=== PATIENT | male | born 1975 | race Caucasian/White ===

== ENCOUNTER 2023-07-22 07:29 | Outpatient (CLI) | payer BC, OTHER, SELFPAY ==
--- NOTE | ~2023-07-22 | MR_ITS ---
MRI of the lumbar spine Clinical History: Back pain Technique: Axial T2-weighted images, and sagittal T1-weighted, T2-weighted, and T2 fat-sat images wer e acquired. Findings: There is no fracture or dislocation of the lumbar spine. Vertebral bodies maintain normal h eight and alignment. No bone marrow signal abnormality seen. At L1-L2, there is no disc bulge or herniation. There is minimal facet arthropathy. No central canal stenosis or neural foraminal narrowing. At L2-L3, there is minimal disc bulge and mild facet arthropathy. No central canal stenosis. There is minimal left neural foraminal narrowing. Right neural foramen preserved. At L3-L4, there is moderate degenerative disc narrowing with disc bulge and small central disc protru ignacia. There is moderate facet arthropathy. No marco central canal stenosis. There is moderate bilater al neural foraminal narrowing. At L4-L5, there is moderate degenerative disc narrowing with small central disc extrusion and mild fa cet arthropathy. No central canal stenosis. There is moderate bilateral neural foraminal narrowing. At L5-S1, there is no disc bulge or herniation. There is moderate facet arthropathy. No central canal stenosis. There is preservation of bilateral neural foramina. Paravertebral soft tissues are unremarkable. Impression: Small central disc extrusion at L4-L5. Mild degenerative spondylosis otherwise, as detailed above. Reviewed, dictated and finalized at [facility]. Impression: Small central disc extrusion at L4-L5. Mild degenerative spondylosis otherwise, as detailed above.
== END 2023-07-22 07:30 | disposition home or self-care (01) ==
PROVIDERS: PCP Nurse Practitioner Family; Visit Provider Nurse Practitioner Family
DX: M51.26 Other intervertebral disc displacement, lumbar region (principal); M43.06 Spondylolysis, lumbar region
CPT/HCPCS: 72148

== ENCOUNTER 2023-11-07 09:53 | Emergency (ER) | payer OTHER, SELFPAY ==
--- NOTE | 2023-11-07 09:56 | ED.URI ---
HPI - URI/Sore Throat General Chief Complaint: Upper Respiratory Infection Stated Complaint: bodyaches,headaches,fever Time Seen by Provider: 11/07/23 09:56 Source: patient Mode of arrival: ambulatory Limitations: no limitations History of Present Illness HPI Narrative: Jayjay is a 48-year-old male patient presenting to the clinic today with complaints of sore throat, nasal congestion, headaches, body aches, and feeling feverish for the past 2 days. He reports that he does feel very lethargic. No known sick contacts. Does not know how high his temperature has gotten. He denies any cough, chest pain, or shortness of breath. MD elicited complaint: sore throat and nasal congestion Related Data Home Medications Medication Instructions Recorded Confirmed azelastine 205.5 mcg (0.15 %) 2 spray intranasal DAILY 01/18/22 11/07/23 nasal spray ropinirole 1 mg tablet 2 mg PO HS 01/18/22 11/07/23 atorvastatin 20 mg tablet 20 mg PO DAILY 11/07/23 11/07/23 Allergies Allergy/AdvReac Type Severity Reaction Status Date / Time hydrocodone AdvReac Intermediate Nausea and Verified 11/07/23 09:57 Vomiting Review of Systems Review of Systems: Pertinent positives per HPI. Patient denies any rash, visual changes, dizziness, cough, shortness of breath, chest pain, palpitations, nausea, vomiting, diarrhea, constipation, abdominal pain, or any urinary issues. PENDING SALE TO [facility] Past Medical History Medical History Arthropathy of lumbar facet joint B12 deficiency Chronic pain syndrome Cluster headaches Degeneration of intervertebral disc of lumbar region DNS (deviated nasal septum) Fatigue GERD (gastroesophageal reflux disease) Hyperlipidemia Hypertrophy of inferior nasal turbinate Iron metabolism disorder Lumbar radiculopathy Major depressive disorder 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 Obesity ANÍBAL (obstructive sleep apnea) Peritonsillar cellulitis PLMD (periodic limb movement disorder) PNAR (perennial non-allergic rhinitis) Urinary incontinence Vitamin D deficiency Social History Social History Smoking status: Current every day smoker Tobacco type: cigarettes Alcohol intake: never Substance use: never Substance use type: does not use Living arrangements: with family Comments At the time of my signature, I reviewed and agree with the nursing past medical, surgical, social, and family history. There is no relevant family history pertinent to the patient complaint. Exam Narrative: General: Well-developed, well nourished, in no apparent distress Head: Normocephalic, atraumatic Eyes: Pupils equally round and reactive to light bilaterally, EOM intact, sclera and conjunctive clear, no discharge, lids normal Ears: TMs intact and congested, ear canals clear, no drainage, grossly hearing normal. Nose: Nares patent, clear nasal discharge, no inflammation, no sinus tenderness. Mouth: Oral pharynx red without lesions or masses, good dentition, MMM. Neck: Supple, trachea midline, no enlargement of anterior or posterior cervical nodes, no thyroid masses or goiter palpable. Cardio: Regular rate and rhythm, s1 and s2 normal, no murmur appreciated. Resp: Clear to auscultation bilaterally, no rhonchi, rales, wheezing or rubs Course Course Emergency Course: Portions of this record may have been created with voice recognition software. Level of Care: Express Care Visit Vital Signs Vital signs: Vital Signs Temperature 37.6 C 11/07/23 10:11 Pulse Rate 98 11/07/23 10:11 Respiratory Rate 20 11/07/23 10:11 Blood Pressure 129/64 11/07/23 10:11 Pulse Oximetry 98 11/07/23 10:11 Oxygen Delivery Room Air 11/07/23 10:11 Temperature 37.6 C 11/07/23 10:11 Pulse Rate 98 11/07/23 10:11 Respiratory Rate 20 11/07/23 10:11 Blood Pressure 129/64 11/07/23 10:11 Pulse Oximetry
[2023-11-07 10:11] VITALS: BP 129/64; PULSE 98; RESP 20; TEMP 37.6; O2SAT 98
[2023-11-07 10:28] LABS: EDINFLUASCREEN Negative; EDINFLUBSCREEN Negative
[2023-11-07 10:34] LABS: EDSTREPNEGPOS1 Presumptive Negative
== END 2023-11-07 10:35 | disposition home or self-care (01) ==
PROVIDERS: Emergency Provider Nurse Practitioner Family; PCP Nurse Practitioner Family
DX: B34.9 Viral infection, unspecified (principal); J06.9 Acute upper respiratory infection, unspecified; J02.9 Acute pharyngitis, unspecified; Z20.822 Contact with and (suspected) exposure to COVID-19; F17.210 Nicotine dependence, cigarettes, uncomplicated; K21.9 Gastro-esophageal reflux disease without esophagitis; E78.5 Hyperlipidemia, unspecified; M47.26 Other spondylosis with radiculopathy, lumbar region
CPT/HCPCS: 87081; 87426; 87804; 87880; 99213; G0463

== ENCOUNTER 2024-03-02 11:07 | Emergency (ER) | payer OTHER, SELFPAY ==
[2024-03-02 11:28] VITALS: BP 118/68; PULSE 93; RESP 18; TEMP 37.6; O2SAT 97
--- NOTE | 2024-03-02 11:34 | ED.GENADULT ---
HPI - General Adult General Chief complaint: Upper Respiratory Infection Stated complaint: sore throat / sinus / runny nose / congestion Time Seen by Provider: 03/02/24 11:34 Source: patient Mode of arrival: ambulatory Limitations: no limitations History of Present Illness HPI narrative: 48-year-old male patient presents to the [facility] with complaints of sore throat, body aches, chills, congestion and just overall not feeling well. Patient did bring in his son on Sunday that did test positive for strep. Patient states that his symptoms started yesterday. Related Data Home Medications Medication Instructions Recorded Confirmed ropinirole 1 mg tablet 2 mg PO HS 01/18/22 03/02/24 atorvastatin 20 mg tablet 20 mg PO DAILY 11/07/23 03/02/24 fluoxetine 10 mg DIRECTED 03/02/24 03/02/24 mirtazapine 7.5 mg DIRECTED 03/02/24 03/02/24 prazosin 2 mg DIRECTED 03/02/24 03/02/24 Allergies Allergy/AdvReac Type Severity Reaction Status Date / Time hydrocodone AdvReac Intermediate Nausea and Verified 03/02/24 11:26 Vomiting Review of Systems Review of Systems: CONSTITUTIONAL: Denies fever, Positive body aches and chills, positive coldsweats. EYES: Denies visual changes, redness, or discharge. ENT: positive rhinorrhea, congestion, sore throat, denies otalgia. CARDIOVASCULAR: Denies chest pain, palpitations, or edema. RESPIRATORY: Denies cough or dyspnea. GASTROINTESTINAL: Denies abdominal pain, nausea, vomiting, or diarrhea. GENITOURINARY: Denies dysuria or hematuria. SKIN: Denies rash or itching. MUSCULOSKELETAL: Denies back pain, joint pain, or myalgia. NEUROLOGIC: Denies headache, numbness, or weakness. PSYCHIATRIC: Denies anxiety or depression. [facility] Past Medical History Medical History Arthropathy of lumbar facet joint B12 deficiency Chronic pain syndrome Cluster headaches Degeneration of intervertebral disc of lumbar region DNS (deviated nasal septum) Fatigue GERD (gastroesophageal reflux disease) Hyperlipidemia Hypertrophy of inferior nasal turbinate Iron metabolism disorder Lumbar radiculopathy Major depressive disorder 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 Obesity ANÍBAL (obstructive sleep apnea) Peritonsillar cellulitis PLMD (periodic limb movement disorder) PNAR (perennial non-allergic rhinitis) Urinary incontinence Vitamin D deficiency Social History Social History Smoking status: Current every day smoker Tobacco type: cigarettes Alcohol intake: never Substance use: never Substance use type: does not use Living arrangements: with family Comments At the time of my signature I agree with nursing past medical history, surgical, social, and family history. There is no relevant family history pertinent to the presenting complaint. Exam Narrative: GENERAL: Well-appearing, well-nourished, and in no acute distress. HEAD: Normocephalic, atraumatic. EYES: PERRLA and EOMI. ENT: Nares with erythema edema noted bilaterally, no rhinorrhea or epistaxis. Mucous membranes moist. posterior pharynx with erythema and 2+ tonsillar enlargement, no exudates or lesions present. Bilateral TMs do appear cloudy but no erythema or signs symptoms of infection at this time. NECK: Supple. No lymphadenopathy CHEST: Clear to auscultation. No respiratory distress. HEART: Regular rate and rhythm. No murmur heard. Normal peripheral pulses. ABDOMEN: Soft, nontender, nondistended, normal active bowel sounds. EXTREMITIES: Normal range of motion. No edema. SKIN: Warm, dry, no rash. NEURO: No focal deficits. Alert and oriented x3. Course Course Level of Care: Express Care Visit Reevaluation(s) Reevaluation #1: Re-evaluated patient notified him that he is positive today for COVID-19. Discussed with patient he should stay home from work/ school until fever free for 24 hours as per CDC guidelines. Discussed with patient that he can take [id number] medications such as Tylenol and Motrin to help with body aches, chills, fatigue and fevers. Discussed with patient that we will go ahead and prescribe him Paxil of it today since he does have some medical history that could put him at high risk for complications. Discussed with patient that if he has worsening symptoms such as chest pain, shortness of breath or any other concerning symptoms he needs to be re-evaluated in the emergency department. Patient verbalized understanding denies any other questions or concerns at this time. Date: 03/02/24 Time: 12:26 Vital Signs Vital signs: Vital Signs Temperature 37.6 C H 03/02/24 11:28 Pulse Rate 93 03/02/24 11:28 Respiratory Rate 18 03/02/24 11:28 Blood Pressure 118/68 03/02/24 11:28 Pulse Oximetry 97 03/02/24 11:28 Oxygen Delivery Room Air 03/02/24 11:28 Temperature 37.6 C H 03/02/24 11:28 Pulse Rate 93 03/02/24 11:28 Respiratory Rate 18 03/02/24 11:28 Blood Pressure 118/68 03/02/24 11:28 Pulse Oximetry 97 03/02/24 11:28 Oxygen Delivery Room Air 03/02/24 11:28 Vital signs reviewed. Medical Decision Making MDM Narrative Medical decision making narrative: Plan care for patient is to swab him today for strep, COVID and influenza especially since his symptoms just started yesterday and he does have a child household who has positive strep. I will reassess him once this has resulted. Differential Diagnosis Differential Diagnosis: Differential diagnosis: Allergic rhinitis, chronic sinusitis, tonsillitis, acute sinusitis, infectious mononucleosis, seasonal influenza, pertussis, diphtheria, meningococcal disease, viral syndrome, viral bronchitis, RSV, COVID-19 Vital Signs Vital Signs: Vital Signs Temperature 37.6 C H 03/02/24 11:28 Pulse Rate 93 03/02/24 11:28 Respiratory Rate 18 03/02/24 11:28 Blood Pressure 118/68 03/02/24 11:28 Pulse Oximetry 97 03/02/24 11:28 Oxygen Delivery Room Air 03/02/24 11:28 Temperature 37.6 C H 03/02/24 11:28 Pulse Rate 93 03/02/24 11:28 Respiratory Rate 18 03/02/24 11:28 Blood Pressure 118/68 03/02/24 11:28 Pulse Oximetry 97 03/02/24 11:28 Oxygen Delivery Room Air 03/02/24 11:28 Lab Data Labs: Lab Results 03/02/24 Range/Units 11:57 POC Grp A Strep Screen Negative (Negative) Critical Care Time Critical Care Time Critical Care Time: No Discharge Plan Discharge Clinical Impression: COVID-19 Patient Disposition: Home, Self-Care Condition: Stable Instructions: Antibiotic Form, COVID-19 (Coronavirus Disease 2019) (ED) Additional Instructions: Paxlovid antiviral was ordered for you today. It interferes with her atorvastatin so please stop taking the atorvastatin for at least 8 days while on the Paxlovid. May start taking your atorvastatin on day 8 after completing your 5 day course of paxlovid. COVID-19 is a contagious respiratory illness caused by a virus that spreads from person to person. The virus is transmitted through respiratory droplets from coughing, sneezing, talking or laughing. Droplets not blocked by masks can travel up to 6 feet. Masks are meant to decrease the chance of you spreading the virus to others. COVID-19 is usually a self-limited illness with most people experiencing mild to moderate respiratory illness and recovery without requiring special treatment. While most patients have mild to moderate symptoms, some can develop serious illness that requires hospitalization. This may develop after a week of illness. INSTRUCTIONS Personal Care Rest Drink plenty of fluids (non-alcoholic) Acetaminophen (Tylenol?) 650 mg every 6 hours and/or Ibuprofen (Advil?) 600 mg every 6-8 hours as needed to reduce fever, aches or other pains Treat any bothersome symptoms with [id number] medication Limit the spread to others Isolate yourself as completely as possible. Visit the Stop the Spread General COVID FAQs for additional information. When to seek further evaluation: Feeling short of breath or having trouble breathing Persistent pain or pressure in the chest New confusion or inability to become fully awake Bluish lips or face Symptoms last over 10 days and get worse instead of better Prescriptions: New Paxlovid 300 mg (150 mg x 2)-100 mg tablets,dose pack See Rx Instructions .ROUTE .COMPLEX Qty: 30 0RF Rx Instructions: take TWO 150 mg tablets of nirmatrelvir with ONE 100 mg tablet of ritonavir twice daily for 5 days No Action atorvastatin 20 mg tablet 20 mg PO DAILY fluoxetine 10 mg DIRECTED mirtazapine 7.5 mg DIRECTED prazosin 2 mg DIRECTED ropinirole 1 mg tablet 2 mg PO HS Follow-up/Referrals: Victorino,Shirley Engle APRN [Primary Care Provider] - Stand Alone Forms: Work/School Release IP Time of Disposition: 12:26
[2024-03-02 11:59] LABS: EDSTREPNEGPOS1 Negative (Negative)
[2024-03-02 12:19] LABS: EDCOVIDSCREEN Positive (Negative); EDINFLUASCREEN Negative (Negative); EDINFLUBSCREEN Negative (Negative)
== END 2024-03-02 12:30 | disposition home or self-care (01) ==
PROVIDERS: Emergency Provider Nurse Practitioner Family; PCP Nurse Practitioner Family
DX: U07.1 COVID-19 (principal); K21.9 Gastro-esophageal reflux disease without esophagitis; E78.5 Hyperlipidemia, unspecified; E66.9 Obesity, unspecified; Z68.35 Body mass index [BMI] 35.0-35.9, adult; F17.210 Nicotine dependence, cigarettes, uncomplicated
CPT/HCPCS: 87081; 87426; 87804; 87880; 99213; G0463

== ENCOUNTER 2024-06-08 09:11 | Emergency (ER) | payer OTHER, SELFPAY ==
--- NOTE | ~2024-06-08 | XR_ITS ---
CHEST RADIOGRAPH, PA AND LATERAL CLINICAL HISTORY: cough . COMPARISON: None TECHNIQUE: PA and lateral views of the chest. FINDINGS The cardiomediastinal silhouette is unremarkable. The lungs are clear. Visualized osseous structures and soft tissues are unremarkable. IMPRESSION: No focal infiltrate or effusion. Reviewed, dictated and finalized at location A. [facility] CL[facility] AUDITING
--- OUTSIDE RECORDS SUMMARY | 2024-06-08 09:19 | XMS_ITS | Clinical Summary ---
Author Organization [facility] Address [address] [place] [address] Phone Care Team Providers Care [employer] Name Role Phone Unavailable Primary Care Provider Unavailabl e Allergies Active Allergy Reactions Criticality Noted Date Comments Hydrocodone-Acetaminophen Other (see Comments) High 01/19/2016 headache Medications oxyCODONE-aceta minophen (PERCOCET) 5-325 MG Tablet Take 1 Tab by mouth every 6 hours as needed for Severe pain. 15 Tab 8 Active Additional Information Patient not taking.Reported on 06/05/2019 Buda-3 Fatty Acids (FISH OIL) 1200 MG Capsule Take 1 Cap by mouth daily. 90 Cap 3 9 Active fluticasone (FLONASE) 50 MCG/ACT SuspensionIndic ations:PNAR (perennial non-allergic rhinitis),Hyper trophy of inferior nasal turbinate 2 sprays in each nostril once daily (best after shower/ bath) 3 Bottle 3 9 Active rOPINIRole (REQUIP) 1 MG TabletIndicatio ns:PLMD (periodic limb movement disorder) 2.5 tabs PO QHS 225 Tab 3 9 Active mirtazapine (REMERON) 15 MG Tablet Take 15 mg by mouth nightly. Active FLUoxetine HCl 20 MG Tablet Take 1 Tab by mouth daily. 90 Tab 3 0 Active cyclobenzaprine (FLEXERIL) 5 MG Tablet Take 1 tablet at night as needed for muscle pain/spasms. 30 Tab 0 Active ibuprofen (MOTRIN) 800 MG Tablet TAKE 1 TABLET BY MOUTH EVERY 8 HOURS NEEDED FOR MODERATE OR MORE SEVERE PAIN 270 Tab 3 0 Active Active Problems Problem Noted Date Diagnosed Date Chronic joint pain 05/21/2019 RLS (restless legs syndrome) 05/21/2019 Hypotension 05/21/2019 Palpitations 05/21/2019 Tobacco abuse 09/19/2018 Wheezing 09/19/2018 Elevated vitamin B12 level 06/15/2018 Impaired fasting glucose 06/14/2018 Foraminal stenosis of lumbar region 02/27/2018 Right lumbar radiculopathy 11/12/2017 B12 deficiency 02/05/2017 Hyperlipidemia 02/05/2017 Fatigue 12/20/2016 Obesity (BMI 35.0-39.9 without comorbidity) 11/23 Puncture wound of right foot 08/16/2016 Tinea pedis of right foot 08/16/2016 ANÍBAL on CPAP 12/13/2015 PLMD (periodic limb movement disorder) 6 PNAR (perennial non-allergic rhinitis) 6 Hypertrophy of inferior nasal turbinate 11/05/19 16 Iron metabolism disorder 11/05/2015 DNS (deviated nasal septum) 11/05/2015 Gastroesophageal reflux disease 11/05/2015 Mandibular retrognathism 11/05/2015 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 11/05/2015 Non morbid obesity 11/04/2015 Intractable cluster headache syndrome 07/28/2015 Major depressive disorder, recurrent episode, mo derate 06/26/2015 Vitamin D insufficiency 06/09/2015 Chronic pain syndrome 06/09/2015 Depression 06/09/2015 Urinary incontinence 06/09/2015 Second hand tobacco smoke exposure 05/28/2015 Lumbar facet arthropathy 05/07/2015 Degeneration of intervertebral disc of lumbar re gion 05/07/2015 Peritonsillar cellulitis Immunizations Immunization Administration Dates Next Due Influenza Vaccine greater than 3 yrs 02/23/2017, 01/07/2015,02/23/2014 Influenza Vaccine, Quadrivalent, PF 01/22/2019,0 01/18/2018,01/19/2016 Influenza, Seasonal, Injectable, Undefined 02/23,01/07/2015,02/23/2014 PUR FLU 3+ YRS PRES FREE QUAD IM 01/19/2016 TD VACCINE 04/23/2009 Family History Medical History Relation Name Comments Other-comment Brother Heart Attack Father Manny Stroke Father Manny Alzheimer's Disease Maternal Grandfather Liver Disease Maternal Grandmother Kidney Disease Mother [place] Relation Name Status Comments Brother Alive Father Manny Alive Maternal Grandfather Alive Maternal Grandmother Mother [place] Alive Paternal Grandfather Paternal Grandmother Social History Tobacco Use Types Packs/Day Years Used Date Smoking Tobacco: Some Days Cigarettes 0.1 22 Smokeless Tobacco: Never Tobacco Cessation:Ready to Q uit: No; Counseling Given: Yes Alcohol Use Standard Drinks/Week Comments No 0 (1 standard drink = 0.6 oz pur e alcohol) Sexually Active Control Partners Comments Yes Female Sex and Gender Information Value Date Recorded Sex Assigned at Not on file Legal Sex Male 8:43 PM CDT Gender Identity Not on file Sexual Orientation Not on file 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 Not on file Not on file Not on f ile Last Filed Vital Signs Vital Sign Reading Time Taken Comments Blood Pressure 131/76 07/09/2019 11:16 AM CDT Pulse 81 07/09/2019 11:16 AM CDT Temperature 36.6 C (97.8 F) 07/09/2019 11:16 AM CDT Respiratory Rate 20 05/21/2019 3:57 PM FAMILY WORKER Oxygen Saturation 97% 07/09/2019 11: 16 AM CDT Inhaled Oxygen Concentration - - Weight 109.5 kg (241 lb 6.4 oz) 05/21/2019 3:57 PM FAMILY WORKER Height 175.3 cm (5' 9 ) 05/21/2019 3:57 PM FAMILY WORKER Body Mass Index 35.65 05/21/2019 3:57 PM FAMILY WORKER Plan of Treatment Health Maintenance Due Date Last Done Comments Hepatitis C Virus (HCV) Screening 1974 TdaP Immunization 1974 Hepatitis B Immunization (1 of 3 - 19+ 3-dose series) 1993 Colonoscopy 07/23/2019 Colorectal Cancer Screening 07/23/2019 Influenza Immunization (#1) 2023 10/0 05/2018, 01/18/2018, 02/23/2017, Additional history exists SARS-COV-2 Immunization (2023- season) 2023 Cologuard 2024 Immunochemical Fecal Occult Blood 2024 Respiratory Syncytial Virus (RSV) Immunization (Adult) (1 - 1-dose 75+ series) 2049 Meningococcal Immunization (ACWY) Aged Out No longer eligible based on patient's age to complete this topic Pneumococcal Immunization Combined Aged Out No longer eligible based on patient's age to complete this topic Rotavirus Immunization Aged Out No lo nger eligible based on patient's age to complete this topic Insurance [id number] [id number]
--- OUTSIDE RECORDS SUMMARY | 2024-06-08 09:19 | XMS_ITS | Clinical Summary ---
Author Organization [facility] Address [address] [place] [address] Care Team Providers Care Field Worker Name Role Phone Shirley Gleason NP Primary Care Provider [phone] Allergies No known active allergies Medications prazosin 2 MG capsule Take 1 capsule (2 mg total) by mouth. Active [place]-3 Fatty Acids (FISH OIL) 1200 MG Cap Take 1,200 mg by mouth daily. 9 Active mirtazapine (REMERON) 30 MG tablet 1 tablet (30 mg total). 3 Active Vitamin D3 (VITAMIN D) 50 mcg tablet Take 1 tablet (50 mcg total) by mouth daily. Active rOPINIRole (REQUIP) 1 MG tabletIndications:P LMD (periodic limb movement disorder) take 2 tablets by mouth every night at bedtime 90 tablet 1 4 Active FLUoxetine (PROZAC) 20 MG capsule Take 1 capsule (20 mg total) by mouth. 4 Active zolpidem (AMBIEN) 10 MG tabletIndications:O ther insomnia Take 1 tablet (10 mg total) by mouth nightly as needed for Sleep. 15 tablet 4 Active atorvastatin (LIPITOR) 40 MG tabletIndications:M ixed hyperlipidemia Take 1 tablet (40 mg total) by mouth nightly at bedtime. 90 tablet 3 4 Active buPROPion XL (WELLBUTRIN XL) 150 MG 24 hr tabletIndications:T obacco dependence Take 1 tablet (150 mg total) by mouth daily. 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 Psoriasis vulgaris 05/25/2023 Regular astigmatism 05/25/2023 Rosacea 05/25/2023 Sciatica, right side 05/25/2023 Seborrheic dermatitis 05/25/2023 Other insomnia 11/21/2022 Chronic joint pain 05/21/2019 Hypotension 05/21/2019 Palpitations 05/21/2019 Wheezing 09/19/2018 Elevated vitamin B12 level 06/15/2018 Impaired fasting glucose 06/14/2018 Foraminal stenosis of lumbar region 02/27/2018 Right lumbar radiculopathy 11/12/2017 B12 deficiency 02/05/2017 Hyperlipidemia 02/05/2017 Fatigue 12/20/2016 Puncture wound of right foot 08/16/2016 Tinea pedis of right foot 08/16/2016 ANÍBAL on CPAP 12/13/2015 DNS (deviated nasal septum) 11/05/2015 Hypertrophy of inferior nasal turbinate 11/05/19 16 Gastroesophageal reflux disease 11/05/2015 Iron metabolism disorder 11/05/2015 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 11/05/2015 Mandibular retrognathism 11/05/2015 PNAR (perennial non-allergic rhinitis) 6 PLMD (periodic limb movement disorder) 6 Obesity (BMI 30-39.9) 11/04/2015 Intractable cluster headache syndrome 07/28/2015 Major depressive disorder, r ecurrent episode, moderate ([facility]) 06/26/2015 Chronic pain syndrome 06/09/2015 Depression 06/09/2015 Urinary incontinence 06/09/2015 Vitamin D insufficiency 06/09/2015 Second hand tobacco smoke exposure 05/28/2015 Degeneration of intervertebral disc of lumbar re gion 05/07/2015 Resolved Problems Problem Noted Date Diagnosed Date Resolved Date Routine general medical exam ination at a health care facility 04/05/2012 01/02/2020 Immunizations Name Administration Dates Next Due Anthrax Vaccine 02/22/2011,01/16/2011 Fluzone 6 Months+ Quad (0.5 mL Prefilled Syringe) 01/04/2022,03/03/2020 Hepatitis A (Havrix 1440 El.U) 10/15/2010 Hepatitis A/Hepatitis B(Twinrix) 01/20/2010,11/22 Hepatitis B (Generic: Adult) 10/15/2010 Influenza (FluMist) 01/16/2011,01/20/2010 Influenza (Generic) 03/07/2018, 7,01/22/2016,01/07,02/23/2014,12/22/2012 Influenza Adult (Generic) 02/06/2023,05/2018,01/18/2018,01/18 MMR (MMRII) 01/20/2010,12/18/2009 Meningococcal (Menactra) 12/18/2009 Polio IPV (Ipol) 12/18/2009 Small Pox 02/22/2011 Td (TDVAX) 04/23/2009 Td (Tenivac) preservative free 04/23/2009 Tdap (Adacel) 03/27/2021 Tdap (Generic) 02/23/2017,12/18/2009 Tdap (Historical Only-select from [employer] glass) 08/01/2019 Typhoid Vi Polysaccharide Va cc 25 Mcg/0.5Ml Im Soln 10/15/2010 Family History Medical History Relation Comments Cancer Father Heart Attack Father Heart Disease Father Stroke Father CHF Mother Hypertension Mother renal failure Mother Relation Status Comments Father Mother Alive Social History Tobacco Use Types Packs/Day Years Used Date Smoking Tobacco: Every Day Cigarettes Smokeless Tobacco: Never Tobacco Cessation:Ready to Q uit: No; Counseling Given: Yes Alcohol Use Standard Drinks/Week Comments Not Currently 0 (1 standard drink = 0.6 oz pur e alcohol) PHQ-2 Answer Date Recorded Patient Health Questionnaire-2 Score 0 05/25/2023 Sex and Gender Information Value Date Recorded Sex Assigned at Not on file Legal Sex Male 5:22 PM CDT Gender Identity Not on file Sexual Orientation Not on file Last Filed Vital Signs Vital Sign Reading Time Taken Comments Blood Pressure 125/78 02/29/2024 4:12 PM PACKAGING OPERATOR Pulse 75 02/29/2024 4:12 PM PACKAGING OPERATOR Temperature 36.4 C (97.6 F) 02/29/2024 4:12 PM PACKAGING OPERATOR Respiratory Rate 18 02/29/2024 4:12 PM PACKAGING OPERATOR Oxygen Saturation 98% 02/29/2024 4:12 PM PACKAGING OPERATOR Inhaled Oxygen Concentration - - Weight 111.3 kg (245 lb 6 oz) 02/29/2024 12:22 P M PACKAGING OPERATOR Height 175.3 cm (5' 9 ) 02/29/2024 12:22 PM PACKAGING OPERATOR Body Mass Index 36.24 02/29/2024 12:22 PM PACKAGING OPERATOR Plan of Treatment Upcoming Encounters Date Type Department Care Team (Late st Contact Info) Description 06/09/2024 1:20 PM PACKAGING OPERATOR Office Visit [facility] Family & Internal Medicine - [place] [id number] [place] [phone] [place] [address] [place] [address] [place] [address] Health Maintenance Due Date Last Done Comments Colorectal Cancer Screening Colonoscopy (10 Years) 1975 Pneumococcal Vaccine: Pediatrics (0 to 5 Years) and At-Risk Patients (6 to 64 Years) (1 of 2 - PCV) 1980 Annual Physical 01/04/2023 01/04/2022 COVID-19 Vaccine (1 - season) 2023 Influenza Adult (#1) 2024 02/06/2023, 01/04/2022, 03/03/2020, Additional history exists PHQ-2 (Physician [place]) 04/23/2024 05/25/2023 DTaP, Tdap and Td Vaccines (5 - Td or Tdap) 03/27/2031 03/27/2021, 08/01/2019, 02/23/2017, Additional history exists Meningococcal Vaccine Aged Out 12/18/2009 No sergio liliana eligible based on patient's age to complete this topic Hepatitis B Vaccines Completed 10/15/2010, 01/20/2010, 12/18/2009 Hepatitis C Completed 12/17/2023 Meningococcal B Vaccine Aged Out No l onger eligible based on patient's age to complete this topic RSV Immunizations Under 20 Months Aged Out No longer eligible based on patient's age to complete this topic Procedures Procedure Name Priority Date/Time Associated Diagnosis Comments HEPATITIS C ANTIBODY Routine 12/17/2023 9:47 AM CDT Encounter for hepatitis C screening test for low risk patient from Last 3 Months or Most Recently Relevant to Health Maintenance Results * HEPATITIS C AB ([facility] ONLY) (12/17/2023 9:47 AM CDT) HEPATITIS C AB NON-REACTI VE NON-REACTI VE 12/17/2023 8:09 PM CDT [facility] 12/17/2023 9:47 AM CDT us Shirley Gleason NP LABORATORY Final Result [facility] [address] [place] [address], from Last 3 Months or Most Recently Relevant to Health Maintenance Insurance [facility] [employer] Care Teams Field Worker Relationship Specialty [place] [address] [place] [address] PCP - General Nurse Practitioner Family 05/23/22
--- OUTSIDE RECORDS SUMMARY | 2024-06-08 09:19 | XMS_ITS | Encounter Summary ---
Author Organization [facility] Address [address] [place] [address] Phone Care Team Providers Care Front End Assistant Name Role Phone Severiano Merlos MD Primary Care Provider [phone] Zaid Valente DPM Unavailable Reason for Visit * Reason Comments Medication Refill Encounter Details Date Type Department Care Team (Late st Contact Info) Description 06/18/2019 Refill [facility] [address] [place], [place] [id number] Severiano Merlos MD #[address] [address] Medication Refill Social History Tobacco Use Types Packs/Day Years Used Date Smoking Tobacco: Some Days Cigarettes 0.1 22 Smokeless Tobacco: Never Alcohol Use Standard Drinks/Week Comments No 0 [...] Not on file Not on f ile documented as of this encounter Miscellaneous Notes * Telephone Encounter - Pattie Yoder RN - 06/18/2019 10:58 AM SURVEILLANCE MONITOR Requested Prescriptions Pending Prescriptions Disp Refills ibuprofen (MOTRIN) 800 MG Tablet [Pharmacy Med Name: IBUPROFEN 800MG TABLETS] 270 Tab 3 Sig: TAKE 1 TABLET BY MOUTH EVERY 8 HOURS NEEDED FOR MODERATE OR MORE SEVERE PAIN Analgesics: NSAIDS - OTC Passed - 06/18/2019 10:58 AM Passed - Valid encounter within last 12 months Past Office Visits Recent Outpatient Visits 4 weeks ago Depression, unspecified depression type [facility] Severiano Merlos MD 4 months ago Acute bronchitis, unspecified organism [facility] Lalit Fishman, MARKETING CLERK, ENGINEERING AND OPERATIONS DIRECTOR 5 months ago Depression, unspecified depression type [facility] Severiano Merlos MD 9 months ago Hyperlipidemia, unspecified hyperlipidemia type [facility] Severiano Merlos MD 1 year ago Degeneration of intervertebral disc of lumbar region [facility] Lalit Fishman, MARKETING CLERK, ENGINEERING AND OPERATIONS DIRECTOR Upcoming Appointments Future Appointments In 3 months Francine Velez PAC [facility] GROUP ENT, [facility] EILLANCE MONITOR documented in this encounter Plan of Treatment Not on file documented as of this encounter Visit Diagnoses Not on filedocumented in this encounter Additional Health Concerns Assessment Noted Time PHQ-9 Depression Total Score: 13 018 4:27 PM CDT documented as of this encounter Care Teams Front End Assistant Relationship Specialty Start Date End Date Severiano Merlos MD #[address] [address] PCP - General Family Medicine 03/24/15 08/21/19 Zaid Valente DPM #2 [facility] [place] [address] Consulting Physician Podiatry 08/16/16 08/21/19 documented as of this encounter
[2024-06-08 09:22] VITALS: BP 119/68; PULSE 92; RESP 18; TEMP 37; O2SAT 97
--- NOTE | 2024-06-08 09:58 | ED_ITS ---
HPI - URI/Sore Throat General Chief Complaint: Upper Respiratory Infection Stated Complaint: flu symptoms Time Seen by Provider: 06/08/24 09:29 Source: patient Mode of arrival: ambulatory Limitations: no limitations History of Present Illness HPI Narrative: 48-year-old male presents to [facility] with complaints of nonproductive cough, sinus pressure, intermittent fevers up to 101 the past 3-4 days. Patient rep orts that his 2 children recently tested positive for influenza A approximately 5 days ago. Patient taking [id number] NyQuil, DayQuil, Motrin and Tylenol with little relief. Patient is a smoker. Patient denies recent travel. MD elicited complaint: fever, cough and sinus pain Onset (ago): day(s) (3) Able to tolerate fluids by mouth: Yes Relieving factors: nothing Context: sick contacts Treatments prior to arrival: cold medicine Related Data Home Medications ?Medication ?Instructions ?Recorded ?Confirmed ?Last Taken ?Type atorvastatin 20 mg tablet 20 mg PO DAILY 11/07/23 03/02/24 Unknown History fluoxetine 10 mg DIRECTED 03/02/24 03/02/24 Unknown History mirtazapine 7.5 mg DIRECTED 03/02/24 03/02/24 Unknown History prazosin 2 mg DIRECTED 03/02/24 03/02/24 Unknown History Allergies Allergy/AdvReac Type Severity Reaction Status Date / Time hydrocodone AdvReac Intermediate Nausea and Verified 06/08/24 09:40 Vomiting Review of Systems Constitutional: Constitutional: Reports chills, Reports fatigue, Reports fever(s) and Denies weakness ENT: Denies dizziness, Denies epistaxis, Reports nasal congestion and Denies sore throat Respiratory: Respiratory: Reports cough, Denies dyspnea and Denies wheezing Gastrointestinal: Gastrointestinal: Denies diarrhea, Denies nausea and Denies vomiting Musculoskeletal: Musculoskeletal: Denies arthralgias and Denies joint swelling Integumentary/Breasts: Skin/Breast: Denies erythema and Denies rash Neurologic: Denies syncope and Denies headache(s) [facility] Past Medical History Medical History Vitamin D deficiency Urinary incontinence Lumbar radiculopathy PNAR (perennial non-allergic rhinitis) PLMD (periodic limb movement disorder) Peritonsillar cellulitis Obesity 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 Major depressive disorder Iron metabolism disorder Cluster headaches ANÍBAL (obstructive sleep apnea) Hypertrophy of inferior nasal turbinate Hyperlipidemia GERD (gastroesophageal reflux disease) Fatigue DNS (deviated nasal septum) Degeneration of intervertebral disc of lumbar region Chronic pain syndrome B12 deficiency Arthropathy of lumbar facet joint Social History Social History Smoking status: Current every day smoker Tobacco type: cigarettes Alcohol intake: never Substance use: never Substance use type: does not use Living arrangements: with family Exam Const: General: healthy appearing Nutritional Appearance: well nourished Orientation/consciousness: patient oriented x3 Limitations: no limitations HENMT: Head: normal to inspection Ears: external ears normal, TM's normal bilaterally and EAC's normal Face/Nose/Sinus: Normal external nose present and Normal nares present Mouth: Yes Normal oral and palatal mucosa present and Yes moist mucous membranes Teeth and gingiva: dentition normal Throat: posterior oropharynx normal and uvula midline Eyes: Conjunctivae: conjunctivae normal Neck: Neck: normal visual inspection Resp: Effort & Inspection: normal respiratory effort and not labored Auscultation: clear to auscultation bilaterally, no crackles, no rales, no rhonchi and no wheezes Cardio: Rate: regular rate Rhythm: regular rhythm Heart sounds: no murmurs Skin: General skin exam: normal color Rashes: no rashes Neuro: General: patient oriented x3 Speech: normal speech Psych: Affect: normal affect Attitude: cooperative Course Course Level of Care: Express Care Visit Vital Signs Vital signs: Vital Signs Temperature 37.0 C 06/08/24 09:22 Pulse Rate 92 06/08/24 09:22 Respiratory Rate 18 06/08/24 09:22 Blood Pressure 119/68 06/08/24 09:22 Pulse Oximetry 97 06/08/24 09:22 Oxygen Delivery Room Air 06/08/24 09:22 Temperature 37.0 C 06/08/24 09:22 Pulse Rate 92 06/08/24 09:22 Respiratory Rate 18 06/08/24 09:22 Blood Pressure 119/68 06/08/24 09:22 Pulse Oximetry 97 06/08/24 09:22 Oxygen Delivery Room Air 06/08/24 09:22 MDM - URI/Sore Throat MDM Narrative Medical decision making narrative: Discussed negative lab results and chest x-ray with patient. Based off current symptoms and recent exposure to influenza a, is likely that patient is experiencing flu-like symptoms. Patient agrees to take medications as prescribed. Patient agrees to proceed to the emergency room if symptoms worsen. Work excuse provided for patient Differential Diagnosis Differential diagnosis: Likely otitis media, sinusitis and viral infection Lab Data Labs: Lab Results 06/08/24 Range/Units 10:10 POC Influenza A Ag Negative (Negative) POC Influenza B Ag Negative (Negative) POC SARS CoV-2 Ag Negative (Negative) Imaging Data Radiologist's impression: Fernando Reyna 48 M 1975 Allergy/Adv: hydrocodone [facility] [address] [address] XRay Report Signed Patient: Fernando Reyna : 1975 MR#: [id number] Age: 48 Acct:[id number] Loc: [facility] ADM Date: 06/08/[address]: Ordering Physician: Belkis Cross APRN Date of Service: 06/08/24 Procedure(s): XR chest 2V Accession Number(s): [id number] cc: Victorino, Shirley Engle APN; Belkis Cross APRN~ CHEST RADIOGRAPH, PA AND LATERAL CLINICAL HISTORY: cough . COMPARISON: None TECHNIQUE: PA and lateral views of the chest. FINDINGS The cardiomediastinal silhouette is unremarkable. The lungs are clear. Visualized osseous structures and soft tissues are unremarkable. IMPRESSION: No focal infiltrate or effusion. Reviewed, dictated and finalized at location A. EKEEPING ROOM ATTENDANT Please be advised this is a medical document. It is intended for [id number] communication. It is written in medical language and may contain unfamiliar abbreviations or verbiage. Medical documents are intended to carry relevant information, facts as evident, and the clinical opinion of the practitioner at the time of the encounter. This report may have been done utilizing a voice recognition system. Attempts have been made to correct errors. However, there may be uncorrected grammatical, spelling, and recognition errors present. The file time of this note does not necessarily represent the time of service. Dictated By: Ashley Castaneda MD 06/08/24 1025 Signed By: <Electronically signed by Ashley Castaneda MD in OV> 06/08/24 1026 Critical Care Time Critical Care Time Critical Care Time: No Discharge Plan Discharge Clinical Impression: Viral infection Patient Disposition: Home, Self-Care Condition: Stable Instructions: Viral Syndrome (ED) Additional Instructions: Rest increase fluids take Claritin daily Take Tessalon as needed for cough Monitor symptoms closely and proceed to the emergency room if symptoms worsen. Patient Language: Pashto Prescriptions: New loratadine [Claritin] 10 mg tablet 10 mg PO DAILY Qty: 30 0RF benzonatate 100 mg capsule 100 mg PO TID PRN (Reason: cough) Qty: 20 0RF No Action atorvastatin 20 mg tablet 20 mg PO DAILY fluoxetine 10 mg DIRECTED mirtazapine 7.5 mg DIRECTED prazosin 2 mg DIRECTED Follow-up/Referrals: Victorino,Shirley Engle, RESOLUTION AGENT [Primary Care Provider] - Stand Alone Forms: Work/School Release IP Time of Disposition: 10:42
[2024-06-08 10:11] LABS: EDCOVIDSCREEN Negative (Negative); EDINFLUASCREEN Negative (Negative); EDINFLUBSCREEN Negative (Negative)
--- OUTSIDE RECORDS SUMMARY | 2024-06-08 10:25 | XMS_ITS | Encounter Summary ---
Author Organization [facility] Address [address] [place] [address] Phone Care Team Providers Care Attorney Law Clerk Name Role Phone Severiano Merlos MD Primary Care Provider [phone] Zaid Valente DPM Unavailable Reason for Visit * Reason Comments Medication Refill Encounter Details Date Type Department Care Team (Late st Contact Info) Description 06/18/2019 Refill [facility] [address] [place], [place] [phone] Severiano Merlos MD #[address] [address] Medication Refill Social History Tobacco [...] Pattie Yoder RN - 06/18/2019 10:58 AM TELECOMMUNICATIONS ADMINISTRATOR Requested Prescriptions Pending Prescriptions Disp Refills ibuprofen [...] 4 weeks ago Depression, unspecified depression type [facility] Severiano Merlos MD 4 months ago Acute bronchitis, unspecified organism [facility] Lalit Fishman, TOPOGRAPHICAL FIELD ASSISTANT, METAL SORTER 5 months ago Depression, unspecified depression type [facility]IAN [facility] Severiano Merlos MD 9 months ago Hyperlipidemia, unspecified hyperlipidemia type [facility] Severiano Merlos MD 1 year ago Degeneration of intervertebral disc of lumbar region [facility] Lalit Fishman, TOPOGRAPHICAL FIELD ASSISTANT, METAL SORTER Upcoming Appointments Future Appointments In 3 months Francine Velez PAC [facility], [facility] COMMUNICATIONS ADMINISTRATOR documented in this encounter Plan of Treatment Not on file documented as of this encounter Visit Diagnoses Not on filedocumented in this encounter Additional Health Concerns Assessment Noted Time PHQ-9 Depression Total Score: 13 018 4:27 PM CDT documented as of this encounter Care Teams Attorney Law Clerk Relationship Specialty Start Date End Date Severiano Merlos MD #[address] [address] PCP - General Family Medicine 03/24/15 08/21/19 Zaid Valente DPM #2 [facility] [place] [place] [address] Consulting Physician Podiatry 08/16/16 08/21/19 documented as of this encounter
--- OUTSIDE RECORDS SUMMARY | 2024-06-08 10:25 | XMS_ITS | Clinical Summary ---
Author Organization [facility] Address [address] [place] [address] Care Team Providers Care Control Manager Name Role Phone Shirley Gleason NP Primary Care Provider [phone] Allergies No known active allergies Medications prazosin 2 MG capsule Take 1 capsule (2 mg total) by mouth. Active [place]-3 Fatty Acids (FISH OIL) 1200 MG Cap [...] Major depressive disorder, s barbara episode, moderate ([facility]) 05/25/2023 Memory loss 05/25/2023 Multiple benign melanocytic [...] Major depressive disorder, r ecurrent episode, moderate ([facility]) 06/26/2015 Chronic pain syndrome 06/09/2015 Depression 06/09/2015 [...] Tdap (Generic) 02/23/2017,12/18/2009 Tdap (Historical Only-select from [employer] glass) 08/01/2019 Typhoid Vi Polysaccharide Va cc [...] Comments Blood Pressure 125/78 02/29/2024 4:12 PM PACKAGE DELIVERY DRIVER Pulse 75 02/29/2024 4:12 PM PACKAGE DELIVERY DRIVER Temperature 36.4 C (97.6 F) 02/29/2024 4:12 PM PACKAGE DELIVERY DRIVER Respiratory Rate 18 02/29/2024 4:12 PM PACKAGE DELIVERY DRIVER Oxygen Saturation 98% 02/29/2024 4:12 PM PACKAGE DELIVERY DRIVER Inhaled Oxygen Concentration - - Weight 111.3 kg (245 lb 6 oz) 02/29/2024 12:22 P M PACKAGE DELIVERY DRIVER Height 175.3 cm (5' 9 ) 02/29/2024 12:22 PM PACKAGE DELIVERY DRIVER Body Mass Index 36.24 02/29/2024 12:22 PM PACKAGE DELIVERY DRIVER Plan of Treatment Upcoming Encounters Date Type Department Care Team (Late st Contact Info) Description 06/09/2024 1:20 PM PACKAGE DELIVERY DRIVER Office Visit [facility] Family & Internal Medicine - [place] [id number] [place] [phone] [place] [address] [address] [place] [address] Health Maintenance Due Date Last Done Comments Colorectal Cancer Screening Colonoscopy (10 Years) 1975 Pneumococcal Vaccine: Pediatrics (0 to 5 Years) and At-Risk Patients (6 to 64 Years) (1 of 2 - PCV) 1980 Annual Physical 01/04/2023 01/04/2022 COVID-19 Vaccine (1 - season) 2023 Influenza Adult (#1) 2024 02/06/2023, 01/04/2022, 03/03/2020, Additional history exists PHQ-2 (Physician [place]) 04/23/2024 05/25/2023 DTaP, Tdap and Td Vaccines [...] Health Maintenance Results * HEPATITIS C AB ([facility] ONLY) (12/17/2023 9:47 AM CDT) HEPATITIS C AB NON-REACTI VE NON-REACTI VE 12/17/2023 8:09 PM CDT [facility] 12/17/2023 9:47 AM CDT us Shirley Gleason NP LABORATORY Final Result [facility] [address] [place] [address], from Last 3 Months or Most Recently Relevant to Health Maintenance Insurance [facility] [employer] Care Teams Control Manager Relationship Specialty [place] [address] [place] [address] PCP - General Nurse Practitioner Family 05/23/22
--- OUTSIDE RECORDS SUMMARY | 2024-06-08 10:25 | XMS_ITS | Clinical Summary ---
Author Organization [facility] Address [address], [address] [place] [address] Phone Care Team Providers Care Rural Carrier Associate Name Role Phone Unavailable Primary Care Provider Unavailabl e Allergies Active Allergy Reactions Criticality Noted Date Comments Hydrocodone-Acetaminophen Other (see Comments) High 01/19/2016 headache Medications oxyCODONE-aceta minophen (PERCOCET) 5-325 MG Tablet Take 1 Tab by mouth every 6 hours as needed for Severe pain. 15 Tab 8 Active Additional Information Patient not taking.Reported on 06/05/2019 [place]-3 Fatty Acids (FISH OIL) 1200 MG Capsule [...] CDT Respiratory Rate 20 05/21/2019 3:57 PM MALT HOUSE LOADER Oxygen Saturation 97% 07/09/2019 11: 16 AM CDT Inhaled Oxygen Concentration - - Weight 109.5 kg (241 lb 6.4 oz) 05/21/2019 3:57 PM MALT HOUSE LOADER Height 175.3 cm (5' 9 ) 05/21/2019 3:57 PM MALT HOUSE LOADER Body Mass Index 35.65 05/21/2019 3:57 PM MALT HOUSE LOADER Plan of Treatment Health Maintenance Due Date [...] patient's age to complete this topic Insurance [facility] [employer]
== END 2024-06-08 10:48 | disposition home or self-care (01) ==
PROVIDERS: Emergency Provider Nurse Practitioner Family; PCP Nurse Practitioner Family
DX: B34.9 Viral infection, unspecified (principal); Z20.822 Contact with and (suspected) exposure to COVID-19; F17.210 Nicotine dependence, cigarettes, uncomplicated; E78.5 Hyperlipidemia, unspecified; K21.9 Gastro-esophageal reflux disease without esophagitis; E66.9 Obesity, unspecified; Z68.35 Body mass index [BMI] 35.0-35.9, adult
CPT/HCPCS: 71046; 87426; 87804; 99213; G0463

== ENCOUNTER 2024-09-22 10:38 | Emergency (ER) | payer OTHER, SELFPAY ==
[2024-09-22 10:44] VITALS: BP 145/91; PULSE 100; RESP 20; TEMP 37.2; O2SAT 96
--- NOTE | 2024-09-22 10:57 | ED.GENADULT ---
HPI - General Adult General Chief complaint: Upper Respiratory Infection Stated complaint: Cough History of Present Illness HPI narrative: Fernando Reyna Is a 49-year-old male presents today with complaints of having 3 days of URI symptoms. He states it started with a scratchy irritation in his throat to congestion runny nose and cough. Denies any known fevers or chills. States feeling generally unwell. Related Data Home Medications ?Medication ?Instructions ?Recorded ?Confirmed ?Last Taken ?Type atorvastatin 20 mg tablet 20 mg PO DAILY 11/07/23 03/02/24 Unknown History fluoxetine 10 mg tablet 10 mg PO DAILY 09/22/24 09/22/24 Unknown History mirtazapine 15 mg tablet (Remeron) 7.5 mg PO DAILY 09/22/24 09/22/24 Unknown History prazosin 2 mg capsule 2 mg PO DAILY 09/22/24 09/22/24 Unknown History ropinirole 1 mg tablet mg 09/22/24 Unknown History Allergies Allergy/AdvReac Type Severity Reaction Status Date / Time hydrocodone AdvReac Intermediate Nausea and Verified 09/22/24 10:45 Vomiting Review of Systems Review of Systems: All systems reviewed & are unremarkable except as noted in HPI and below PMFSH Past Medical History Medical History Vitamin D deficiency Urinary incontinence Lumbar radiculopathy PNAR (perennial non-allergic rhinitis) PLMD (periodic limb movement disorder) Peritonsillar cellulitis Obesity 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 Major depressive disorder Iron metabolism disorder Cluster headaches ANÍBAL (obstructive sleep apnea) Hypertrophy of inferior nasal turbinate Hyperlipidemia GERD (gastroesophageal reflux disease) Fatigue DNS (deviated nasal septum) Degeneration of intervertebral disc of lumbar region Chronic pain syndrome B12 deficiency Arthropathy of lumbar facet joint Social History Social History Smoking status: Current every day smoker Tobacco type: cigarettes Alcohol intake: never Substance use: never Substance use type: does not use Living arrangements: with family Exam Narrative: GENERAL: well-nourished, and in no acute distress. HEAD: Normocephalic, atraumatic. EYES: PERRLA and EOMI. ENT: Nares clear,Positive rhinorrhea. Mucous membranes moist. Oropharynx + mild erythema without tonsillar hypertrophy exudate or other lesions. Bilateral TMs pearly trevino nonbuilding NECK: Supple. No adenopathy or masses. No carotid bruits or JVD CHEST: Clear to auscultation. No respiratory distress. No wheezes rales or rhonchi HEART: Regular rate and rhythm. No murmur heard. Normal peripheral pulses. EXTREMITIES: Normal range of motion. No edema. SKIN: Warm, dry, no rash. NEURO: No focal deficits. Alert and oriented x3. PSYCH: Normal mood and affect. Course Course Level of Care: Express Care Visit Vital Signs Vital signs: Vital Signs Temperature 37.2 C 09/22/24 10:44 Pulse Rate 100 09/22/24 10:44 Respiratory Rate 20 09/22/24 10:44 Blood Pressure 145/91 H 09/22/24 10:44 Pulse Oximetry 96 09/22/24 10:44 Oxygen Delivery Room Air 09/22/24 10:44 Temperature 37.2 C 09/22/24 10:44 Pulse Rate 100 09/22/24 10:44 Respiratory Rate 20 09/22/24 10:44 Blood Pressure 145/91 H 09/22/24 10:44 Pulse Oximetry 96 09/22/24 10:44 Oxygen Delivery Room Air 09/22/24 10:44 Medical Decision Making MDM Narrative Medical decision making narrative: 49 y/o male who presents with 3 day symptoms of URI and exam consistent with viral upper respiratory infection. Lung sounds clear throughout, RR even unlabored. sating 96% on room air, he has not taken anything for his symptoms Will treat him with Tylenol / Motrin here D/C with Mucinex and Zyrtec Encouraged rest/ hydration / days off work Return precautions discussed Medical Records Medical records reviewed: Yes I reviewed the external patient's medical records. Vital Signs Vital Signs: Vital Signs Temperature 37.2 C 09/22/24 10:44 Pulse Rate 100 09/22/24 10:44 Respiratory Rate 20 09/22/24 10:44 Blood Pressure 145/91 H 09/22/24 10:44 Pulse Oximetry 96 09/22/24 10:44 Oxygen Delivery Room Air 09/22/24 10:44 Temperature 37.2 C 09/22/24 10:44 Pulse Rate 100 09/22/24 10:44 Respiratory Rate 20 09/22/24 10:44 Blood Pressure 145/91 H 09/22/24 10:44 Pulse Oximetry 96 09/22/24 10:44 Oxygen Delivery Room Air 09/22/24 10:44 vitals reviewed by me Discharge Plan Discharge Clinical Impression: Upper respiratory infection Qualifiers: URI type: unspecified URI Qualified Code(s): J06.9 - Acute upper respiratory infection, unspecified Patient Disposition: Home Condition: Stable Instructions: Antibiotic Form Additional Instructions: Start taking the Mucinex twice daily Start taking the Zyrtec daily Continue to take the Tylenol / Motrin as needed for body aches Push oral hydration Get plenty of rest If you develop worsening symptoms chest pain/ shortness of breath / vomiting then go to the ER These upper respiratory illnesses can last 7-10 days but I do not expect you to feel any worse after today. Follow up with your PCP in 1 week Patient Language: Omani Prescriptions: New guaifenesin [Mucinex] 1,200 mg tablet extended release 12hr 1,200 mg PO BID Qty: 20 0RF cetirizine [Zyrtec] 10 mg tablet 10 mg PO DAILY PRN (Reason: allergy symptoms) Qty: 30 0RF No Action ropinirole 1 mg tablet atorvastatin 20 mg tablet 20 mg PO DAILY fluoxetine 10 mg DIRECTED mirtazapine 7.5 mg DIRECTED prazosin 2 mg DIRECTED Follow-up/Referrals: Victorino,Shirley Engle APRN [Primary Care Provider] - 1 Week Stand Alone Forms: Work/School Release IP Time of Disposition: 11:03
[2024-09-22] MEDS: IBUPROFEN 600 MG TABLET PO (11:01)
[2024-09-22] MEDS: ACETAMINOPHEN 500 MG TABLET 1000 MG PO (11:01)
--- OUTSIDE RECORDS SUMMARY | 2024-09-22 11:11 | XMS_ITS | Clinical Summary ---
Author Organization [facility] Address [address], [address] [place] [address] Phone Care Team Providers Care Button Maker Name Role Phone Unavailable Primary Care Provider Unavailabl e Allergies Active Allergy Reactions Criticality Noted Date Comments Hydrocodone-Acetaminophen Other (see Comments) High 01/19/2016 headache Medications oxyCODONE-aceta minophen (PERCOCET) 5-325 MG Tablet Take 1 Tab by mouth every 6 hours as needed for Severe pain. 15 Tab 8 Active Additional Information Patient not taking.Reported on 06/05/2019 [place]-3 Fatty Acids (FISH OIL) 1200 MG Capsule [...] CDT Respiratory Rate 20 05/21/2019 3:57 PM BODY SANDER Oxygen Saturation 97% 07/09/2019 11: 16 AM CDT Inhaled Oxygen Concentration - - Weight 109.5 kg (241 lb 6.4 oz) 05/21/2019 3:57 PM BODY SANDER Height 175.3 cm (5' 9) 05/21/2019 3:57 PM BODY SANDER Body Mass Index 35.65 05/21/2019 3:57 PM BODY SANDER Plan of Treatment Health Maintenance Due Date [...] patient's age to complete this topic Insurance [facility] [employer] [employer]
== END 2024-09-22 11:09 | disposition home or self-care (01) ==
PROVIDERS: Emergency Provider Nurse Practitioner Family; PCP Nurse Practitioner Family
DX: J06.9 Acute upper respiratory infection, unspecified (principal); F17.210 Nicotine dependence, cigarettes, uncomplicated; E78.5 Hyperlipidemia, unspecified; K21.9 Gastro-esophageal reflux disease without esophagitis; E66.9 Obesity, unspecified; Z68.35 Body mass index [BMI] 35.0-35.9, adult; F32.9 Major depressive disorder, single episode, unspecified
CPT/HCPCS: 99213; A9270; G0463